=== PATIENT | female | born 1980 | race American Indian/Alaskan Native ===

== ENCOUNTER 2020-12-20 06:07 | Day surgery (SDC) | payer MEDICAID ==
[2020-12-20] MEDS ORDERED: ASPIRIN EC 325 MG TAB PO NR (06:25)
[2020-12-20] MEDS ORDERED: SODIUM CHLORIDE 0.9% 500 ML 500 ML IV SCH (07:00)
[2020-12-20] MEDS ORDERED: HEPARIN/NS 5000 UNIT/500ML 1,000 ML IR ONE (08:07)
[2020-12-20] MEDS ORDERED: NITROGLYCERIN SYRINGE 3 ML ONE (08:08)
[2020-12-20] MEDS: fentaNYL 100 MCG/2 ML INJ ONE ×3 (08:38→09:10)
[2020-12-20] MEDS: HEPARIN 10,000 UNITS/10 ML VIAL ONE ×2 (08:39→09:12)
[2020-12-20] MEDS: VERAPAMIL 5 MG/2 ML INJ ONE ×2 (08:39→09:12)
[2020-12-20] MEDS: MIDAZOLAM 2 MG/2 ML INJ ONE ×3 (08:39→09:10)
[2020-12-20] MEDS: LIDOCAINE (2%) 20 MG/1 ML VIAL 20 ML MDV INFILTRATI ONE ×3 (08:39→09:19)
--- NOTE | 2020-12-20 10:04 | Cardiac Catherization Report ---
DATE OF SERVICE: 12/20/2020 CARDIAC CATHETERIZATION REPORT INDICATION: The patient is a 40-year-old -[place] female with history of morbid obesity and has a history of gastric bypass surgery done in 2008 presently requires revision with gastric sleeve placement by Dr. Eligio Oviedo, hence a preoperative myocardial perfusion imaging was performed and this showed evidence of mild to moderate anterior wall ischemia, hence scheduled for cardiac catheterization for definitive diagnosis and treatment. The patient's echocardiogram showed normal ejection fraction of 55-60%. The patient is aware of the procedure, potential complications, and alternatives of therapy available. DESCRIPTION OF PROCEDURE: The patient was brought to the catheterization laboratory prepared in a standard fashion. The patient was evaluated for moderate sedation and is felt to be an appropriate candidate for moderate sedation and started sedation with IV Versed and fentanyl at 9:00 a.m. Subsequently, local anesthesia was given in the right wrist area and right radial artery access was obtained. However, we could advance the wire, but could not advance the catheter because of severe pain in the right upper arm area. Angiogram showed small caliber of the vessel. Because of small caliber and significant pain with advancement of the catheter, access was changed to the right femoral area. Right femoral area was prepared in standard fashion with Betadine solution and sterile drapes were applied. Local anesthesia was given using 5-Cameroonian micropuncture needle and fluoroscopy. Right femoral artery puncture was made without difficulty. A 5-Cameroonian sheath was introduced. A 5-Cameroonian multipurpose catheter was used to obtain the angiograms of the left ventricle done in [place] projection using hand injection followed by angiograms of the right coronary and left coronary artery using the same catheter. At the end of the procedure, catheter and sheath were removed and good hemostasis was achieved with manual pressure. No untoward complications noted. The patient tolerated the procedure well without any side effects from sedation. At the end of the procedure, the patient is communicating normally, breathing normally without any focal deficits. The patient's sedation started at 9:00 a.m. and ended at 9:29 a.m. The patient was transferred to the room in stable condition. Radial band was applied in the right radial artery and manual pressure was applied in the right groin. No hematoma noted. Following findings were noted. HEMODYNAMICS: Opening aortic pressure 154/56. Left ventricular pressure 155/25. No gradient across the aortic valve. Estimated ejection fraction 55-60%. Left ventriculogram done in [place] projection showed normal sized left ventricle with normal contractility. End diastolic and systolic volumes are normal. Mitral regurgitation could not be evaluated because of the limited amount of dye injected. Right coronary artery dominant vessel arising normally from the anterior cusp. Angiographically smooth and normal. Similarly, left coronary artery arises normally from the left coronary cusp. The left main is short and LAD curves around the apex. Left coronary artery including left main and LAD and its branches and circumflex and its branches are angiographically smooth and normal. FINAL IMPRESSION: 1. Normal size left ventricle with normal contractility with elevated end diastolic pressure. 2. Normal coronary anatomy angiographically. Good hemostasis was achieved in the right groin by manual pressure in addition to application of right radial band with good hemostasis. Findings were explained to the patient. RECOMMENDATIONS: The patient will be monitored in the outpatient area and will be discharged home when stable. Findings were explained in detail to the patient and she understands. TID: [id number] RECEIPT: [id number] EDGARDO/COLETTE
[2020-12-20] MEDS ORDERED: HYDROcodone/ACETAMINOPHEN 5-325 MG TAB PO PRN (10:18)
--- NOTE | 2020-12-20 11:47 | Short Stay Summary ---
Short Stay Documentation Date of service: 12/20/20 - History H&P: obtained from office - Allergies and Medications Current Medications: Allergies morphine Allergy (Verified 12/20/20 06:24) Hives Home Medications Medication Instructions Recorded Confirmed Last Taken Type No Known Home Medications [No 12/20/20 12/20/20 Unknown History Reported Home Medications] Active Medications Hydrocodone Bitart/Acetaminophen (Hydrocodone/Acetaminophen 5-325 Mg Tab) 1 each PO Q6H PRN PRN Reason: Pain, Moderate (4-6) Last Admin: 12/20/20 10:25 Dose: 1 each Documented by: Sodium Chloride (Nacl 0.9% 500 Ml) 500 mls @ 50 mls/hr IV DIRECT MAURICE Stop: 12/20/20 16:59 Last Admin: 12/20/20 07:01 Dose: 50 mls/hr Documented by: - Physical exam Integumentary: other (Right radial cath site inspected Telfa Tegaderm in place no bleeding or hematoma noted. Right groin cath site inspected Telfa Tegaderm intact no bleeding hematoma noted.) - Brief post op/procedure progress note Date of procedure: 12/20/20 Pre-op diagnosis: Abnormal stress test, preop evaluation Post-op diagnosis: other Procedure: [facility] see Dictated cath report Anesthesia: local Estimated blood loss: minimal Condition: stable - Disposition Condition at discharge: Good Disposition: DC-01 TO HOME OR SELFCARE - Discharge Diagnoses (1) Normal coronary arteries Status: Acute Short Stay Discharge Plan Activity: advance as tolerated Diet: low fat, low cholesterol, low salt Wound: open to air, keep clean and dry, per your surgeon's advice Follow up with: ASHLEY POWELL MD [Primary Care Provider] - 7 Days UNA CAMPOS MD [Staff Physician] - 7 Days (Patient should follow-up with Dr Campos in our [place] office on 01/04/2021 at 3 PM. #[id number]) Forms: CardCath PCI D/C Instructions
[2020-12-20 13:50] VITALS: BP 129/87
--- NOTE | 2020-12-21 17:39 | Electrocardiograph Report ---
[facility] Test Date: 2020-12-20 Test Time: 07:11:59 Pat Name: NELLI WAGNER Department: Room: Gender: F [employer] Supervisor: RAMOS : 1980 Requested By: BANG CLEARY Order Number: [id number] Reading MD: Bang Cleary Measurements Intervals [place] Rate: 64 P: 46 ID: [id number] QRS: 35 QRSD: 91 T: -2 QT: 403 QTc: 416 Interpretive Statements Sinus rhythm Borderline prolonged ID interval No previous ECG available for comparison Electronically Signed On 12-21-2020 17:39:10 EDT by Bang Cleary
== END 2020-12-20 14:35 | disposition home or self-care (01) ==
LOC: CATHLABREC 06:07
PROVIDERS: ATTEND Internal Medicine
DX: R94.39 Abnormal result of other cardiovascular function study (principal); E66.01 Morbid (severe) obesity due to excess calories; Z88.5 Allergy status to narcotic agent; Z90.49 Acquired absence of other specified parts of digestive tract; Z83.3 Family history of diabetes mellitus; Z80.8 Family history of malignant neoplasm of other organs or systems; Z98.890 Other specified postprocedural states; Z68.42 Body mass index [BMI] 45.0-49.9, adult
CPT/HCPCS: 36415; 84132; 93005; 93458; 99156; 99157; C1769; C1894; J1644; J2250; J3010; J7040; Q9967